=== PATIENT | male | born 1995 | race Caucasian/White ===

== ENCOUNTER 2017-04-17 10:29 | Outpatient (CLI) | payer BC ==
--- NOTE | 2017-04-17 22:23 | RAD ---
CHEST TWO VIEWS 04/17/17 No prior films were available for comparison. The heart is normal in size. the left lung is clear. N o major infiltrates or effusions were seen. There is a linear structure just above the right hilum. I cannot tell if this is a stripe of atelectasis or an abnormal vessel. I doubt that this is related to pneumonia. The trachea is midline. The bony structures appear intact. IMPRESSION: 1. No sign of acute pneumonia. 2. Unusual tubular structure in the right upper lobe region just above the right hilum. See abo ve. Followup chest film after treatment might be considered. POS: HOME
== END 2017-04-17 10:30 | disposition home or self-care (01) ==
LOC: BURRAD 10:29
PROVIDERS: ATTEND Family Medicine
DX: J18.9 Pneumonia, unspecified organism (principal)
CPT/HCPCS: 71020

== ENCOUNTER 2018-10-08 08:02 | Emergency (ER) | payer BC ==
[2018-10-08] MEDS ORDERED: Ketorolac Tromethamine 60 MG/2 ML VIAL ONE (09:07)
[2018-10-08 09:14] LABS: Bilirubin Negative (Negative); Blood, Urine Trace (Negative); Clarity Clear (Clear); Glucose, Urine (Dipstick) Negative (Negative); Leukocyte Negative (Negative); Nitrite Negative (Negative); Protein, Urine (Dipstick) Negative (Neg-Trace); Urobilinogen 0.2 mg/dL (0.2-1.0)
[2018-10-08 09:16] LABS: Bacteria/HPF Rare-Few HPF (None Seen); RBC/HPF 0-3 HPF (0-3); Squamous Epithelial 0-3 HPF (0-3); WBC/HPF 0-3 HPF (0-3)
--- NOTE | 2018-10-08 19:44 | CT ---
CT OF THE BRAIN WITHOUT CONTRAST: 10/08/[address] of the brain shows normal sized ventricles with no shift. No intracranial bleeding, mass, o r extra-axial hematoma was seen. There is no sign of stroke or edema. The skull shows no sign fractur e. A small 1.3 cm retention cyst is seen in the floor of the left maxillary sinus. The visible facial structures showed no fracture. The mastoid air cells are clear. IMPRESSION: No acute intracranial findings. Report called to Dr. Fritz at 0854 on 10/08/18. POS: HOME
--- NOTE | 2018-10-08 19:47 | CT ---
CT CERVICAL SPINE 10/08/[address] of the cervical spine was performed for evaluation following trauma. Axial slices were acqu ired, then coronal and sagittal reconstructions were done. No fracture, dislocation, or disc space narrowing was seen. The surrounding vertebral soft tissues we re unremarkable. There was no sign of foraminal or central canal stenosis. There was a faint amount o f bony spurring beginning on the right side at C3-C4 but it is not currently significant. The C1 to d ens distance is normal. There is loss of the normal cervical lordosis which may be due to muscle spas m. IMPRESSION: Unremarkable examination except for straightening of the cervical spine. POS: HOME
--- NOTE | 2018-10-08 19:53 | CT ---
CT ABDOMEN AND PELVIS WITH CONTRAST 10/08/[address] of the abdomen and pelvis was done for evaluation following trauma. Axial slices were acqui red after given IV contrast, then coronal and sagittal reconstructions were done. The lung bases are clear. There is no sign of pleural fluid or pneumothorax. The visible ribs appeare d intact. The liver, spleen, pancreas, gallbladder, adrenal glands, kidneys, and abdominal aorta appeared mirian l. There was no sign of laceration or hematoma in any major organ. There was no dilation of bowel. No free air or free fluid was seen. I would note that the bowel wall of the colon from about the hepatic flexure through the first two thirds of the transverse colon migh t be marginally thickened. If the patient had chronic abdominal pain or other findings of colitis, th e finding might take on meaning. This could be his norm as well in a collapsed colon. CT of the pelvis showed no pelvic masses, hematoma, or other fluid collections. The bony pelvis and l umbar spine appear intact. There was some tissue streaking posterior to the lumbar spine at about th e L2 through L4 level which could be longstanding or even contusion. IMPRESSION: 1. No evidence of acute intra-abdominal or intrapelvic traumatic change. 2. Equivocal thickening of the proximal transverse colon. See comments above. Findings discussed with Dr. Fritz at 0854 on 10/08/18. POS: HOME
== END 2018-10-08 10:00 | disposition home or self-care (01) ==
LOC: BURERS 08:02
DX: M54.12 Radiculopathy, cervical region (principal); R10.30 Lower abdominal pain, unspecified; I10 Essential (primary) hypertension; F41.9 Anxiety disorder, unspecified; F32.9 Major depressive disorder, single episode, unspecified; V43.52XA Car driver injured in collision with other type car in traffic accident, initial encounter
CPT/HCPCS: 70450; 72125; 74177; 81003; 81015; 96374; J1885

== ENCOUNTER 2021-07-10 21:16 | Emergency (ER) | payer BC | END 2021-07-10 21:55 | disposition home or self-care (01) | LOC: BURERS 21:16 | DX: R10.13 Epigastric pain (principal); R11.2 Nausea with vomiting, unspecified; I10 Essential (primary) hypertension | CPT/HCPCS: 99283 ==